=== PATIENT | female | born 1980 | race Two or more races ===

== ENCOUNTER 2023-02-18 03:05 | Emergency (ER) | payer OTHER ==
[~2023-02-18] VITALS: Ht 162.6 cm; Wt 91.0 kg
[2023-02-18 03:47] LABS: Alanine Aminotransferase 25 U/L (7-40); Albumin 4.7 g/dL (3.2-4.8); Alkaline Phosphatase 57 U/L (46-116); Anion Gap 7 (5-15); Aspartate Aminotransferase 12 U/L (13-40); BUN/Creatinine Ratio 15.4 (10.0-20.0); Blood Urea Nitrogen 12 mg/dL (9-23); Calcium 9.5 mg/dL (8.7-10.4); Carbon Dioxide 24 mmol/L (20-30); Chloride 104 mmol/L (98-107); Glucose 223 mg/dL (74-106); Magnesium 1.4 mg/dL (1.6-2.6); Potassium 3.8 mmol/L (3.5-5.1); Sodium 135 mmol/L (136-145)
[2023-02-18 03:48] LABS: Bilirubin, Total 0.3 mg/dL (0.2-1.0); Total Protein 7.1 g/dL (5.7-8.2)
[2023-02-18 03:52] LABS: Partial Thromboplastin Time 26.2 SEC (24.5-34.5); Prothrombin Time 10.5 sec (9.3-11.8)
[2023-02-18 03:54] LABS: Basophils # (auto) 0 10 ^3/uL (0-0.2); Basophils % (auto) 0.5 % (0.0-2.0); Eosinophils # (auto) 0.1 10 ^3/uL (0-0.8); Eosinophils % (auto) 1.6 % (0.0-7.0); Hematocrit 39.4 % (36.0-46.0); Hemoglobin 13.6 g/dL (12.2-16.2); Lymphocytes # (auto) 3.5 10 ^3/uL (0.4-5.4); Lymphocytes % (auto) 41.1 % (10.0-50.0); Mean Corpuscular Hemoglobin 29.8 pg (28.0-32.0); Mean Corpuscular Hgb Conc. 34.5 g/dL (32.0-36.0); Mean Corpuscular Volume 86.6 fL (80.0-100.0); Monocytes # (auto) 0.8 10 ^3/uL (0-1.3); Monocytes % (auto) 8.8 % (0.0-12.0); Neutrophils # (auto) 4.1 10 ^3/uL (1.6-8.6); Red Blood Cells 4.56 10^6/uL (4.0-5.20); Red Cell Distribution Width 13.3 % (11.8-14.3); White Blood Cell 8.6 10^3/uL (4.4-10.8)
[2023-02-18] MEDS ORDERED: SODIUM CHLORIDE 0.9% 500 ML IV ONE (04:00)
[2023-02-18] MEDS ORDERED: ASPirin 325 MG TAB PO ONE (04:00)
[2023-02-18] MEDS ORDERED: NITROGLYCERIN 0.4 MG SL TAB SL ONE (04:00)
[2023-02-18 04:18] VITALS: PULSE 62; RESP 12; O2SAT 100
[2023-02-18] MEDS ORDERED: MAGNESIUM SULFATE 1GM/100ML 100 ML IV ONE (04:45)
[2023-02-18 05:03] LABS: Urine Bacteria FEW /hpf (None Seen); Urine Blood Negative /uL (Negative); Urine Clarity HAZY (Clear); Urine Protein, UAD Negative (Negative); Urine Urobilinogen Normal (Negative); Urine WBC 1 /hpf (0 - 5)
[2023-02-18 05:04] LABS: Urine Color Straw (Yellow)
[2023-02-18 05:43] LABS: COVID19 ANTIGEN SOFIA FIA NEGATIVE (NEGATIVE)
[2023-02-18 07:20] VITALS: PULSE 77; RESP 15; O2SAT 97
[2023-02-18 10:12] VITALS: BP 101/55; PULSE 85; RESP 15; TEMP 97.8; O2SAT 96
== END 2023-02-18 10:32 | disposition short-term general hospital (02) ==
LOC: EDBD 03:05 → ER 03:09
DX: R07.89 Other chest pain (principal); E83.42 Hypomagnesemia; E11.9 Type 2 diabetes mellitus without complications; I10 Essential (primary) hypertension; I25.2 Old myocardial infarction; Z20.822 Contact with and (suspected) exposure to COVID-19
CPT/HCPCS: 36415; 71045; 80053; 81001; 83735; 83880; 84484; 85025; 85610; 85730; 87426; 93005; 96365; 99285; J3475; J7040

== ENCOUNTER 2025-01-23 22:54 | Emergency (ER) | payer OTHER ==
[~2025-01-23] VITALS: Ht 160 cm; Wt 84.0 kg
[2025-01-24 02:09] VITALS: BP 119/78; PULSE 91; RESP 18; TEMP 98.3; O2SAT 97
== END 2025-01-24 02:18 | disposition left against medical advice (07) ==
LOC: EDBD 22:54 → ER 22:54 → EDUNIT# 22:54 → ER 01-24 02:18
DX: R10.9 Unspecified abdominal pain (principal); Z53.21 Procedure and treatment not carried out due to patient leaving prior to being seen by health care provider

== ENCOUNTER 2025-05-07 00:42 | Emergency (ER) | payer OTHER ==
[~2025-05-07] VITALS: Ht 165.1 cm; Wt 100.0 kg
--- NOTE | 2025-05-07 01:04 | ED.PDOC ---
History of Present Illness HPI Comments 44-year-old, obese female is brought in by ambulance from private residence for chief complaint of nonradiating, epigastric abdominal pain. Significant history for DM, HLD, HTN, cholecystectomy, , and hernia repair. Per EMS personnel report patient endorses on sudden, unprovoked, atraumatic onset of 6/10 pain, yesterday. Associated dizziness, nausea, excessive thirst, and excessive urination. Patient also reports on her at-home blood glucose levels fluctuating between 110's-200's range, all day, today, admits compliance he prescribed medications. Last menstrual period was 04/06/2025. Denies being , currently. Denial of any vomiting, diarrhea, polyphagia, vision, or further acute symptoms. Initial on scene blood glucose of 241. EN route, patient received Zofran ODT. 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 Hx LMP 04/06/25 Family History Family History: Unknown Social History Smoker: Non-Smoker Alcohol: Denies ETOH Use Drugs: Denies Drug Use Lives In: Home All Other Systems: Reviewed and Negative (Comprehensive review of systems are negative unless stated in HPI) Physical Exam General Appearance: No Apparent Distress, Obese HEENT: Normal ENT Inspection, Pharynx Normal, TMs Normal Neck: Full Range of Motion, Non-Tender, Normal, Normal Inspection Respiratory: Chest Non-Tender, Lungs Clear, No Accessory Muscle Use, No Respiratory Distress, Normal Breath Sounds Cardiovascular: No Edema, No JVD, No Murmur, No Gallop, Normal Peripheral Pulses, Regular Rate/Rhythm Breast Exam: Deferred Gastrointestinal: Epigastric (Tenderness), No Organomegaly, No Pulsatile Mass, Normal Bowel Sounds, Soft, Tenderness (Epigastric region) Genitalia: Deferred Pelvic: Deferred Rectal: Deferred Extremities: No calf tenderness, Normal capillary refill, Normal inspection, Normal range of motion, Non-tender, No pedal edema Musculoskeletal : Apperance: Normal Neurologic: Alert, network consultant II-XII nml as Tested, No Motor Deficits, Normal Affect, Normal Mood, No Sensory Deficits Cerebellar Function: Normal Reflexes: Normal Skin: Dry, Normal Color, Warm Lymphatic: No Adenopathy Was a procedure done? Was a procedure done?: No Differential Dx Considerations may include: Gastritis, GERD, PUD, cholelithiasis, viral syndrome, electrolyte imbalance, dehydration, inappropriate medication dose, noncompliance, among others X-Ray, Labs, Meds, VS Vital Signs Date Time Temp Pulse Resp B/P (MAP) Pulse Ox O2 Delivery O2 Flow Rate FiO2 05/07/25 03:08 98.5 78 18 112/73 (86) 98 98.5 05/07/25 00:58 75 05/07/25 00:54 98.1 83 18 138/84 100 98.1 Lab Test 05/07/25 01:29 Range/Units White Blood Count 10.6 4.4-10.8 10^3/uL Red Blood Count 4.50 4.0-5.20 10^6/uL Hemoglobin 13.1 12.2-16.2 g/dL Hematocrit 38.1 36.0-46.0 % Mean Corpuscular Volume 84.6 80.0-100.0 fL Mean Corpuscular Hemoglobin 29.0 28.0-32.0 pg Mean Corpuscular Hemoglobin Concent 34.3 32.0-36.0 g/dL Red Cell Distribution Width 14.1 11.8-14.3 % Platelet Count 313 140-450 10^3/uL Mean Platelet Volume 7.2 6.9-10.8 fL Neutrophils (%) (Auto) 63.3 37.0-80.0 % Lymphocytes (%) (Auto) 28.7 10.0-50.0 % Monocytes (%) (Auto) 6.1 0.0-12.0 % Eosinophils (%) (Auto) 1.6 0.0-7.0 % Basophils (%) (Auto) 0.3 0.0-2.0 % Neutrophils # (Auto) 6.7 1.6-8.6 10 ^3/uL Lymphocytes # (Auto) 3.0 0.4-5.4 10 ^3/uL Monocytes # (Auto) 0.6 0-1.3 10 ^3/uL Eosinophils # (Auto) 0.2 0-0.8 10 ^3/uL Basophils # (Auto) 0 0-0.2 10 ^3/uL Nucleated Red Blood Cells 0.1 % Sodium Level 139 136-145 mmol/L Potassium Level 4.1 3.5-5.1 mmol/L Chloride Level 103 98-107 mmol/L Carbon Dioxide Level 24 20-31 mmol/L Anion Gap 12 5-15 Blood Urea Nitrogen 12 9-23 mg/dL Creatinine 0.71 0.550-1.02 mg/dL Glomerular Filtration Rate Calc 108 >90 mL/min BUN/Creatinine Ratio 16.9 10.0-20.0 Serum Glucose 210 H 74-106 mg/dL Calcium Level 9.2 8.7-10.4 mg/dL Lipase 35 12-53 U/L Beta HCG, Quantitative 0.4 L 1.5-4.2 mIU/mL Current Medications Medications (Trade) Dose Ordered Sig/Devin Route Start Time Stop Time Status Last Admin Al Hydrox/Mg Hydrox/Simethicone (Maalox Plus) 15 ml ONCE ONCE PO 05/07/25 01:00 05/07/25 01:01 DC 05/07/25 03:03 Time of 1ST Reevaluation: 01:20 Reevaluation 1ST: Unchanged Time of 2ND Reevaluation: 03:23 Reevaluation 2ND: Resolved Patient Education/Counseling: Diagnosis, Treatment, Prognosis, Need For Follow Up Family Education/Counseling: No Family Present Comments This is a patient who presents with a epigastric pain. Her pain is completely resolved with GI cocktail. Workup is unremarkable. She does have constipation on the x-ray. I will start her on MiraLax and Protonix. She is stable to follow up with her doctor Additional Information Previous visits reviewed: n/a Labs ordered: Lipase, beta hCG quant, BMP, CBC Images reviewed: KUB abdomen Additional historian is interviewed: EMS personnel SEPSIS Sepsis Screen Physician Orders Kub Abdomen Single View (05/07/25 00:53) Vital Signs Date Time Temp Pulse Resp B/P (MAP) Pulse Ox O2 Delivery O2 Flow Rate FiO2 05/07/25 03:08 98.5 78 18 112/73 (86) 98 98.5 05/07/25 00:58 75 05/07/25 00:54 98.1 83 18 138/84 100 98.1 Laboratory Tests Test 05/07/25 01:29 White Blood Count 10.6 10^3/uL (4.4-10.8) Medications Medications Dose Ordered Sig/Devin Route Start Time Stop Time Status Last Admin Dose Admin Al Hydrox/Mg Hydrox/Simethicone 15 ml ONCE ONCE PO 05/07/25 01:00 05/07/25 01:01 DC 05/07/25 03:03 Departure 1 Departure Time of Disposition: 03:24 Impression: Primary Impression: Gastritis Additional Impression: Constipation Disposition: 01 HOME / SELF CARE / HOMELESS Condition: Good e-Prescriptions Polyethylene Glycol 3350 (Miralax) 17 Gm Pow 17 GM PO DAILY, #2 POW Prov: ANTOINE COATS MD 05/07/25 Pantoprazole Sodium Sesquihydr (Protonix) 40 Mg Tab 40 MG PO DAILY, #30 TAB Prov: ANTOINE COATS MD 05/07/25 Discharged With: Self Critical Care Note Critical Care Time?: No Stability Stability form required: No Heart Score Heart Score: Heart Score Response (Comments) Value History N/A 0 EKG N/A 0 Age N/A 0 Risk Factors N/A 0 Troponin N/A 0 Total 0 I personally scribed for ANTOINE COATS MD ([email or web address]) on 05/07/25 at 01:04. Elect ronically submitted by Mitchel Reynolds [email or web address]). ANTOINE COATS MD May 07, 2025 01:04
[2025-05-07 01:49] LABS: Hematocrit 38.1 % (36.0-46.0); Hemoglobin 13.1 g/dL (12.2-16.2); Mean Corpuscular Hemoglobin 29.0 pg (28.0-32.0); Mean Corpuscular Volume 84.6 fL (80.0-100.0); Nucleated Red Blood Cells % 0.1 %
[2025-05-07 01:59] LABS: Chloride 103 mmol/L (98-107); Potassium 4.1 mmol/L (3.5-5.1); Sodium 139 mmol/L (136-145)
[2025-05-07 02:00] LABS: Anion Gap 12 (5-15); Carbon Dioxide 24 mmol/L (20-31)
[2025-05-07 02:01] LABS: Calcium 9.2 mg/dL (8.7-10.4)
[2025-05-07 02:06] LABS: BUN/Creatinine Ratio 16.9 (10.0-20.0); Blood Urea Nitrogen 12 mg/dL (9-23); Glucose 210 mg/dL (74-106); Lipase 35 U/L (12-53)
--- NOTE | 2025-05-07 03:00 | DVH ---
Exam: XY KUB ABDOMEN SINGLE VIEW Indication: constipation Comparison: None Technique: Single radiographic view of the abdomen. Findings: Right upper quadrant surgical clips. Nonobstructive bowel gas pattern noted. Moderate retained colorectal stool. There is no definite evidence for pneumoperitoneum. No abnormal calcifications noted. Impression: 1. Nonobstructive bowel gas pattern. 2. Moderate retained colorectal stool.
[2025-05-07] MEDS: MAALOX PLUS or MAALOX 30 ML PO ONE (03:03)
[2025-05-07 03:08] VITALS: BP 112/73; PULSE 78; RESP 18; TEMP 98.5; O2SAT 98
[2025-05-07] MEDS ORDERED: POLY335015 PO (03:25)
[2025-05-07] MEDS ORDERED: PANT40TA2 PO (03:25)
--- NOTE | 2025-05-09 13:53 | ECG ---
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
== END 2025-05-07 03:41 | disposition home or self-care (01) ==
LOC: EDBD 00:42 → EDUNIT# 00:42 → ER 00:42
DX: K29.70 Gastritis, unspecified, without bleeding (principal); K59.00 Constipation, unspecified; E11.9 Type 2 diabetes mellitus without complications; E78.5 Hyperlipidemia, unspecified; I10 Essential (primary) hypertension; Z90.49 Acquired absence of other specified parts of digestive tract; Z98.890 Other specified postprocedural states
CPT/HCPCS: 36415; 74018; 80048; 83690; 84702; 85025; 93005